=== PATIENT | male | born 1990 | race Caucasian/White ===

== ENCOUNTER 2022-07-31 09:14 | Emergency (ER) | payer OTHER ==
[~2022-07-31] VITALS: Ht 188 cm; Wt 88.9 kg
[2022-07-31] MEDS ORDERED: PROPARACAINE 0.5% OPHTH SOL 15ML OD ONE (11:05)
[2022-07-31] MEDS ORDERED: FLUORESCEIN OPHTH 1 MG STRIP OD ONE (11:05)
[2022-07-31] MEDS ORDERED: ERYT5OIN25 OP (11:18)
[2022-07-31] MEDS ORDERED: ERYTHROMYCIN OPHTH OINT OD ONE (11:20)
[2022-07-31 11:42] VITALS: BP 134/88
== END 2022-07-31 11:49 | disposition home or self-care (01) ==
LOC: M ED 09:14
DX: S05.01XA Injury of conjunctiva and corneal abrasion without foreign body, right eye, initial encounter (principal); Z88.0 Allergy status to penicillin